=== PATIENT | female | born 1950 | race Caucasian/White ===

== ENCOUNTER → 2020-06-04 09:43 | Outpatient (CLI) | payer MEDICARE, SELFPAY ==
--- NOTE | 2020-06-04 09:45 | DI.US.S_ITS ---
PROCEDURE: US EXTREMITY NONVASC UPPER LT INDICATIONS: mass TECHNIQUE: Real-time scanning was performed of the left forearm, with image documentation. COMPARISON: None. FINDINGS: Focused ultrasound examination of distal left forearm at patient's reported area of palpable lump shows a 1.2 x 0.7 x 1.5 centimeter heterogeneously hypoechoic and solid appearing lesion within subcutaneous soft tissue with internal vascularities. No visible connection with forearm vessel is seen. IMPRESSION: 1.2 x 0.7 x 1.5 cm solid nodule in distal left forearm subcutaneous soft tissue with internal vascularity and is not consistent with simple cyst. Finding could represent benign or malignant soft tissue neoplasm, suggest biopsy or excision for more definitive diagnosis. Dictated by: Vincent Winters M.D. on 06/04/2020 at 11:18 Approved by: Vincent Winters M.D. on 06/04/2020 at 11:25
== END ==
PROVIDERS: Referring Provider Physician Assistant; Visit Provider Physician Assistant
DX: R22.32 Localized swelling, mass and lump, left upper limb (principal)
CPT/HCPCS: 76882

== ENCOUNTER → 2021-06-02 09:26 | Outpatient (CLI) | payer MEDICARE, SELFPAY ==
[2021-06-02 18:45] LABS: Add Manual Diff / Slide Review NO; Basophils Absolute Auto 100 /uL (0-100); Basophils Percent Auto 1.1 % (0-2); Eosinophils Absolute Auto 200 /uL (0-450); Eosinophils Percent Auto 3.8 % (2-4); Hematocrit 43.7 % (36-46); Lymphocytes Absolute Auto 1200 /uL (1100-4500); Lymphocytes Percent Auto 23.8 % (25-40); Mean Corpuscular HGB Conc 34.2 % (30-36); Mean Corpuscular Hemoglobin 31.3 PG (26-34); Mean Corpuscular Volume 91.5 fL (80-100); Monocytes Absolute Auto 400 /uL (0-900); Monocytes Percent Auto 7.3 % (3-14); Neutrophils Absolute Auto 3100 /uL (1500-7000); Platelet Count 249 X10^3/uL (150-400); Red Blood Cell Count 4.78 X10^6/uL (4.0-5.2); Red Cell Distribution Width 13.7 % (11.6-14.8); White Blood Cell Count 4.9 X10^3/uL (4.5-11.0)
[2021-06-02 18:53] LABS: Alanine Aminotransferase 29 IU/L (<35); Albumin Globulin Ratio 1.4 (1.0-2.8); Alkaline Phosphatase 52 U/L (38-126); Aspartate Aminotransferase 36 IU/L (14-36); BUN Creatinine Ratio 24.1 (6-22); Bilirubin Total 0.8 mg/dL (0.2-1.3); Blood Urea Nitrogen 19 mg/dL (7-17); Calcium 9.1 mg/dL (8.4-10.2); Carbon Dioxide 32 mmol/L (22-32); Chloride 101 mmol/L (98-107); Cholesterol 228 mg/dL (140-199); Estimated Glomerular Filt Rate > 60 mL/min (>60); Globulin 2.8 g/dL (1.7-4.1); Glucose 96 mg/dL (80-110); HDL Cholesterol 74 mg/dL (40-60); HEMOLYSIS < 15 (0-50); LDL Cholesterol Calculated 144 mg/dL (<100); Sodium 139 mmol/L (137-145); Total Protein 6.8 g/dL (6.3-8.2); Triglycerides 52 mg/dL (35-150)
== END ==
PROVIDERS: PCP Physician Assistant; Visit Provider Physician Assistant
DX: Z13.220 Encounter for screening for lipoid disorders (principal); L30.9 Dermatitis, unspecified; I10 Essential (primary) hypertension
CPT/HCPCS: 80053; 80061; 85025

== ENCOUNTER → 2021-08-10 10:20 | Outpatient (CLI) | payer MEDICARE, SELFPAY ==
[2021-08-10 19:39] LABS: Alanine Aminotransferase 33 IU/L (<35); Albumin 4.2 g/dL (3.5-5.0); Albumin Globulin Ratio 1.7 (1.0-2.8); Alkaline Phosphatase 51 U/L (38-126); Aspartate Aminotransferase 37 IU/L (14-36); BUN Creatinine Ratio 23.4 (6-22); Bilirubin Total 0.7 mg/dL (0.2-1.3); Blood Urea Nitrogen 18 mg/dL (7-17); Calcium 9.3 mg/dL (8.4-10.2); Carbon Dioxide 32 mmol/L (22-32); Chloride 102 mmol/L (98-107); Estimated Glomerular Filt Rate > 60 mL/min (>60); Globulin 2.5 g/dL (1.7-4.1); Glucose 96 mg/dL (80-110); HEMOLYSIS < 15 (0-50); Sodium 139 mmol/L (137-145); Total Protein 6.7 g/dL (6.3-8.2)
[2021-08-10 19:46] LABS: Add Manual Diff / Slide Review NO; Basophils Absolute Auto 0 /uL (0-100); Basophils Percent Auto 0.9 % (0-2); Eosinophils Absolute Auto 100 /uL (0-450); Eosinophils Percent Auto 2.7 % (2-4); Hematocrit 42.9 % (36-46); Hemoglobin 14.8 g/dL (12.0-16.0); Lymphocytes Absolute Auto 1100 /uL (1100-4500); Lymphocytes Percent Auto 21.7 % (25-40); Mean Corpuscular HGB Conc 34.5 % (30-36); Mean Corpuscular Hemoglobin 31.7 PG (26-34); Mean Corpuscular Volume 91.9 fL (80-100); Monocytes Absolute Auto 300 /uL (0-900); Monocytes Percent Auto 6.2 % (3-14); Neutrophils Absolute Auto 3400 /uL (1500-7000); Neutrophils Percent Auto 68.5 % (50-75); Platelet Count 216 X10^3/uL (150-400); Red Blood Cell Count 4.66 X10^6/uL (4.0-5.2); Red Cell Distribution Width 13.8 % (11.6-14.8)
[2021-08-10 21:45] LABS: Cancer Antigen 125 1650 U/mL (0-35)
== END ==
PROVIDERS: PCP Physician Assistant; Visit Provider Obstetrics & Gynecology
DX: R19.00 Intra-abdominal and pelvic swelling, mass and lump, unspecified site (principal)
CPT/HCPCS: 80053; 85025; 86304

== ENCOUNTER → 2021-08-11 13:22 | Outpatient (CLI) | payer MEDICARE, SELFPAY ==
--- NOTE | 2021-08-11 13:25 | DI.CT.S_ITS ---
PROCEDURE: CT CHEST ABD PEL W CON INDICATIONS: 25cm palpable abdominal mass TECHNIQUE: After the administration of oral and intravenous contrast, axial sections acquired from the supraclavicular neck to the pubic symphysis. Coronal and sagittal reformats were performed. For radiation dose reduction, the following was used: automated exposure control, adjustment of mA and/or kV according to patient size. COMPARISON:None. FINDINGS: Image quality: Excellent. CHEST: Lower Neck: No enlarged lymph nodes. Thyroid: Within normal limits. Axillae: No enlarged lymph nodes. Chest Wall: Unremarkable. Lungs and Airways: There are innumerable tiny ground-glass nodules or diffuse nodular infiltrates. There is right basilar atelectasis. No consolidation. Pleura: No pneumothorax or pleural effusions. Heart: Heart size is normal. No pericardial effusion. Thoracic Vessels: The aorta and pulmonary arteries demonstrate normal size. Mediastinum and Sharon: No enlarged lymph nodes. Esophagus: No wall thickening. Small hiatal hernia. ABDOMEN: Liver: Unremarkable. Gallbladder: Unremarkable. Biliary ducts: Unremarkable. Pancreas: Unremarkable. Spleen: Unremarkable. Adrenal Glands: Unremarkable. Kidneys and Ureters: Unremarkable. Stomach and Bowel: Stomach is normal. Small bowel loops and colon are displaced by a large mass (see pelvic organs for detail). Peritoneum: There is omental caking, suspicious for carcinomatosis. Small peritoneal nodules are noted, concerning for carcinomatosis. No abnormal intraperitoneal fluid. No free air. Ventral Wall: No hernia. Abdominal Nodes: No retroperitoneal or mesenteric adenopathy by size criteria. Vessels: Aorta and inferior vena cava are normal in size. PELVIS: Pelvic Organs: There is a extremity large, multilocular, predominantly cystic mass with internal septa occupying nearly the entire abdominal cavity measuring 24.9 cm AP, 33.6 cm transverse and 36.2 cm cephalocaudal. Different lobules of the mass has difference in attenuation. One area has higher attenuation measuring 58.7 in HU, either indicating a large solid component or due to hemorrhage into the cyst. There are internal septations and small solid components. Because of its healed size, it is difficult to assess is origin, but it is most likely ovarian in etiology. The ovaries themselves are not visualized. There is no pathological free-fluid in the cul-de-sac. Uterus is not visualized. Bladder: Not well seen. Pelvic Nodes: Slightly prominent inguinal lymph nodes are seen bilaterally measuring up to 1 cm in short axis, nonspecific. Miscellaneous: No inguinal hernias are seen. Bones: Degenerative changes in lumbar spine IMPRESSION: 1. A huge, predominantly cystic mass in the pelvic and abdominal cavity measuring 24.9 x 33.6 x 36.2 cm. It occupies nearly the entire abdominal cavity. It is most likely arising from the ovary. Differential diagnoses are large cystadenoma, cystadenocarcinoma and a large mucinous neoplasm. 2. There is omental caking and small peritoneal nodules suspicious for omental carcinomatosis. 3. No enlarged retroperitoneal or pelvic lymph nodes. Mildly enlarged inguinal lymph nodes are nonspecific. 4. No ascites. 5. Innumerable tiny ground-glass nodules or diffuse nodular infiltrates bilaterally, most likely inflammatory or infectious in etiology. Recommend clinical correlation. The result was discussed with Dr. Salinas. Dictated by: Cathie Allison M.D. on 08/11/2021 at 16:05 Approved by: Cathie Allison M.D. on 08/11/2021 at 16:36
== END ==
PROVIDERS: PCP Physician Assistant; Referring Provider Obstetrics & Gynecology; Visit Provider Obstetrics & Gynecology
DX: R19.07 Generalized intra-abdominal and pelvic swelling, mass and lump (principal); R59.0 Localized enlarged lymph nodes
CPT/HCPCS: 71260; 74177; Q9967

== ENCOUNTER → 2021-10-11 12:58 | Outpatient (CLI) | payer MEDICARE, SELFPAY ==
[2021-10-11 19:54] LABS: Cancer Antigen 125 169 U/mL (0-35)
== END ==
PROVIDERS: PCP Physician Assistant; Visit Provider Obstetrics & Gynecology Gynecologic Oncology
DX: D39.11 Neoplasm of uncertain behavior of right ovary (principal); D39.12 Neoplasm of uncertain behavior of left ovary
CPT/HCPCS: 86304